=== PATIENT | male | born 1965 | race Caucasian/White ===

== ENCOUNTER 2017-01-21 04:32 | Emergency (ER) | payer BC ==
[~2017-01-21] VITALS: Ht 182.9 cm; Wt 95.3 kg
--- NOTE | 2017-01-21 04:45 | NUR ---
Pt DEL MALLORY, reports the pt's told them pt had OD on some meds, but unknown as to which. Pt acting altered and slurring his speech at times. Pt denies taking anything. Pt denies CP, SOB, numbness/tingling, dizziness, n/v, no other complaints, no distress noted.
[2017-01-21] MEDS ORDERED: IV NORMAL SALINE 1000 ML BAG IV ONE (05:00)
[2017-01-21] MEDS ORDERED: HALOPERIDOL LACTATE 5 MG/1 ML VIAL IV ONE (05:00)
[2017-01-21] MEDS ORDERED: LORAZEPAM 2 MG/1 ML VIAL IV ONE (05:00)
--- NOTE | 2017-01-21 05:00 | NUR ---
Aplied new elastic bandage over pt's clear wound/vacu dressing and bandaged with elastic tube dressing.
[2017-01-21 05:36] LABS: BASOPHILS % (AUTO) 0.5 % (0.0-2.0); EOSINOPHILS # (AUTO) 0.1 K/uL (0.0-0.7); EOSINOPHILS % (AUTO) 1.6 % (0.0-7.0); HEMOGLOBIN 14.8 G/DL (14.0-18.0); LYMPHOCYTES # (AUTO) 2.1 K/UL (0.8-4.8); LYMPHOCYTES % (AUTO) 23.9 % (20.5-51.5); MEAN CORPUSCULAR HEMOGLOBIN 29.6 UUG (27.0-31.0); MEAN CORPUSCULAR HGB CONC 33 g/dL (32.0-37.0); MONOCYTES # (AUTO) 0.6 K/UL (0.1-1.30); MONOCYTES % (AUTO) 6.8 % (0.0-11.0); NEUTROPHILS # (AUTO) 6.2 K/UL (1.8-8.9); NEUTROPHILS % (AUTO) 67.2 % (38.5-71.5); PLATELET COUNT (AUTO) 146 K/UL (150-450)
[2017-01-21 05:43] LABS: *BLOOD, URINE NEGATIVE (NEGATIVE); *COLOR,URINE AMBER (YELLOW); *KETONES,URINE NEGATIVE (NEGATIVE); *PROTEIN,URINE 1+ (NEGATIVE); *UROBILINOGEN,URINE 0.2 E.U./dl (NORMAL); LEUKOCYTE ESTERASE ,URINE NEGATIVE (NEGATIVE); NITRITE, URINE NEGATIVE (NEGATIVE); PH,URINE 5.5 (5.0-8.0); UGLUCOSE NEGATIVE (NEGATIVE)
[2017-01-21 05:55] LABS: CREATINE KINASE, TOTAL 268 U/L (39-308)
[2017-01-21 06:01] LABS: *BILIRUBIN,URIN NEGATIVE (NEGATIVE); *CLARITY,URINE HAZY (CLEAR)
[2017-01-21 06:02] LABS: BACTERIA,URINE NONE SEEN /HPF (NONE SEEN); CALCIUM OXALATE CRYSTALS,UR MANY /HPF (NONE SEEN); RBC,URINE NONE SEEN /HPF (0-3); SQUAMOUS EPITHELIAL CELL,UR NONE SEEN /HPF (NONE SEEN); WBC,URINE 0-3 /HPF (0-3)
[2017-01-21 06:03] LABS: MUCUS,URINE MODERATE /LPF (0-FEW)
[2017-01-21 06:04] LABS: ETHANOL < 3 MG/DL (0-0)
[2017-01-21 06:05] LABS: CARBON DIOXIDE 31 mmol/L (21-32); CHLORIDE 107 mmol/L (98-107); CREATININE 1.3 mg/dL (0.6-1.3); GLUCOSE 135 mg/dL (74-106); POTASSIUM 4.1 mmol/L (3.5-5.1); UREA NITROGEN, BLOOD 17 mg/dL (7-18)
[2017-01-21 06:09] LABS: *AMPHETAMINE, URINE POSITIVE (NEGATIVE); *BARBITURATE, URINE NEGATIVE (NEGATIVE); *CANNABINOID, URINE NEGATIVE (NEGATIVE); *COCCAINE, URINE NEGATIVE (NEGATIVE); *OPIATE, URINE POSITIVE (NEGATIVE); *PHENCYCLIDINE SCREEN,URINE NEGATIVE (NEGATIVE)
[2017-01-21 06:10] LABS: ALANINE AMINOTRANSFERASE 71 U/L (16-63); ALKALINE PHOSPHATASE 105 U/L (50-136); ASPARTATE AMINOTRANSFERASE 46 U/L (15-37); BILIRUBIN,DIRECT 0.1 mg/dL (0.0-0.2); BILIRUBIN,TOTAL 0.5 mg/dL (0.2-1.0); TOTAL PROTEIN, SERUM 7.6 g/dL (6.4-8.2)
[2017-01-21 06:12] LABS: ACETAMINOPHEN < 2.0 ug/mL (10-30); THYROID STIMULATING HORMONE 4.164 mIU/mL (0.358-3.740)
--- NOTE | 2017-01-21 06:15 | NUR ---
Called Abelardo Mendez to evaluate pt.
--- NOTE | 2017-01-21 07:02 | NUR ---
Endorsed pt to oncoming RN
--- NOTE | 2017-01-21 08:00 | NUR ---
pt not holdable, was notified by Art, pt walked out of hospital.
--- NOTE | 2017-01-21 08:05 | NUR ---
pt trying to call for ride, using hospital phone.
--- NOTE | 2017-01-21 08:29 | NUR ---
pt claiming that came with his cell phone, shoes and shirt. unable to find it in the room.
--- NOTE | 2017-01-21 08:41 | NUR ---
called taxi per pt request. eta 5-10 minutes
--- NOTE | 2017-01-21 08:42 | NUR ---
pt "own therapist" at bedside, talking to pt.
--- NOTE | 2017-01-21 08:48 | NUR ---
i here to take the pt.Patient discharged to home in stable conditon. Written and verbal after care instructions given. Patient verbalizes understanding of instructions.pt walks in steady gait, deneis any pain,nausea, lightheadedness or any other complain.
[2017-01-21 08:49] VITALS: BP 128/61
== END 2017-01-21 08:49 | disposition home or self-care (01) ==
LOC: ER 04:37
DX: F23 Brief psychotic disorder (principal); F19.10 Other psychoactive substance abuse, uncomplicated; L97.511 Non-pressure chronic ulcer of other part of right foot limited to breakdown of skin
CPT/HCPCS: 36415; 70030-TC; 71010; 80307; 84443; 85025; 93005; A4663; G0480; G0480-TC; J7030